=== PATIENT | male | born 1955 | race Caucasian/White ===

== ENCOUNTER 2017-11-02 10:22 | Emergency (ER) | payer MEDICAID ==
[~2017-11-02] VITALS: Ht 167.6 cm; Wt 81.7 kg
[2017-11-02 10:38] VITALS: Ht 167.6 cm; Wt 81.7 kg
[2017-11-02 12:34] LABS: microscopic required? NO
[2017-11-02 12:42] LABS: BASOPHIL % 0.9 % (0-2); PLATELET COUNT 273 x10^3mcL (130-400)
[2017-11-02 12:44] LABS: RED CELL DISTRIBUTION WIDTH 20.1 % (11.5-14.5)
[2017-11-02 12:45] LABS: rbc morphology (normal/abnorm) ABNORMAL (NORMAL)
[2017-11-02 12:47] LABS: CARBON DIOXIDE 18.2 mmol/L (21-32); CHLORIDE SERUM 101 mmol/L (98-107); CREATININE SERUM 0.8 mg/dL (0.7-1.3); GFR1 > 60 mL/min; GLUCOSE SERUM 169 mg/dL (74-106); POTASSIUM SERUM 3.4 mmol/L (3.5-5.1); SODIUM SERUM 132 mmol/L (136-145)
[2017-11-02 12:51] LABS: ALKALINE PHOSPHATASE 129 U/L (46-116); ALT/SGPT 95 U/L (16-63); AMYLASE 42 U/L (25-115); AST/SGOT 160 U/L (15-37); BILIRUBIN TOTAL 2.31 mg/dL (0.20-1.00); LIPASE 118 IU/L (73-393); MAGNESIUM 2.4 mg/dL (1.8-2.4)
[2017-11-02 12:53] LABS: ALBUMIN 2.7 g/dL (3.4-5.0); CHOLESTEROL 362 mg/dL (<200); HDL CHOLESTEROL 30 mg/dL (40-60)
[2017-11-02 13:06] LABS: UA SPECIFIC GRAVITY 1.025 (1.005-1.035); urine erythrocyte NEGATIVE (NEGATIVE)
[2017-11-02 13:30] LABS: AMPHETAMINE QUAL UR NONE DETECTED (NEG <=1000)
[2017-11-02 15:06] VITALS: BP 149/82
== END 2017-11-02 15:06 | disposition home or self-care (01) ==
LOC: ED 10:22
PROVIDERS: Emergency Medicine
DX: K65.4 Sclerosing mesenteritis (principal); F10.20 Alcohol dependence, uncomplicated; K72.90 Hepatic failure, unspecified without coma; R74.0 Nonspecific elevation of levels of transaminase and lactic acid dehydrogenase [LDH]; K70.9 Alcoholic liver disease, unspecified; I10 Essential (primary) hypertension; E78.00 Pure hypercholesterolemia, unspecified
CPT/HCPCS: 83880; G0480; J1885; Q0162

== ENCOUNTER 2019-12-03 15:14 | Emergency (ER) | payer BC ==
[2019-12-03 17:01] LABS: PLATELET COUNT 100 x10^3mcL (130-400); RED CELL DISTRIBUTION WIDTH 19.1 % (11.5-14.5)
[2019-12-03 17:16] LABS: ALKALINE PHOSPHATASE 158 U/L (46-116); BILIRUBIN TOTAL 2.7 mg/dL (0.20-1.00); CARBON DIOXIDE 19.7 mmol/L (21-32); CHLORIDE SERUM 90 mmol/L (98-107); CREATININE SERUM 0.9 mg/dL (0.7-1.3); GFR1 > 60 mL/min; GLUCOSE SERUM 341 mg/dL (74-106); LIPASE 232 IU/L (73-393); POTASSIUM SERUM 3.6 mmol/L (3.5-5.1); SODIUM SERUM 126 mmol/L (136-145)
[2019-12-03 17:36] LABS: BAND NEUTROPHIL 3 % (0-10); MONOCYTE 5 % (0-7); SEGMENTED NEUTROPHILS 43 % (37-75)
[2019-12-03 17:37] LABS: rbc morphology (normal/abnorm) ABNORMAL (NORMAL)
[2019-12-03 17:38] LABS: PLATELET MORPHOLOGY PLATELETS DECREASED
[2019-12-03 17:53] LABS: CALCIUM 8.2 mg/dL (8.5-10.1); TOTAL PROTEIN, SERUM 6.7 g/dL (6.4-8.2)
[2019-12-03 18:15] LABS: AST/SGOT 231 U/L (15-37)
[2019-12-03 18:25] LABS: ALT/SGPT 55 U/L (16-63)
[2019-12-03 19:07] VITALS: BP 138/83
== END 2019-12-03 19:07 | disposition home or self-care (01) ==
LOC: ED 15:14
PROVIDERS: Emergency Medicine
DX: F10.20 Alcohol dependence, uncomplicated (principal); E11.65 Type 2 diabetes mellitus with hyperglycemia; R10.32 Left lower quadrant pain; R10.12 Left upper quadrant pain; R11.2 Nausea with vomiting, unspecified; F41.9 Anxiety disorder, unspecified; I10 Essential (primary) hypertension; E78.00 Pure hypercholesterolemia, unspecified; Y90.9 Presence of alcohol in blood, level not specified
CPT/HCPCS: J2060; J7030

== ENCOUNTER 2020-01-05 13:03 | Emergency (ER) | payer BC, SELFPAY ==
[~2020-01-05] VITALS: Ht 167.6 cm; Wt 104.3 kg
[2020-01-05 14:04] VITALS: Ht 167.6 cm; Wt 104.3 kg
[2020-01-05 16:11] LABS: BASOPHIL % 0.5 % (0-2)
[2020-01-05 16:18] LABS: PLATELET COUNT 51 x10^3mcL (130-400); RED CELL DISTRIBUTION WIDTH 18.3 % (11.5-14.5)
[2020-01-05 16:29] LABS: rbc morphology (normal/abnorm) NORMAL (NORMAL)
[2020-01-05 16:35] LABS: CALCIUM 7.9 mg/dL (8.5-10.1); CARBON DIOXIDE 24.9 mmol/L (21-32); CHLORIDE SERUM 96 mmol/L (98-107); CREATININE SERUM 0.9 mg/dL (0.7-1.3); GFR1 > 60 mL/min; GLUCOSE SERUM 320 mg/dL (74-106); POTASSIUM SERUM 3.6 mmol/L (3.5-5.1); SODIUM SERUM 131 mmol/L (136-145)
[2020-01-05 16:39] LABS: ALBUMIN 2.2 g/dL (3.4-5.0); ALKALINE PHOSPHATASE 195 U/L (46-116); ALT/SGPT 64 U/L (16-63); AST/SGOT 165 U/L (15-37); BILIRUBIN TOTAL 3.04 mg/dL (0.20-1.00); C REACTIVE PROTEIN 3.5 mg/dL (<=0.9); LACTIC DEHYDROGENASE (LDH) 344 U/L (100-190); LIPASE 129 IU/L (73-393); TOTAL PROTEIN, SERUM 6.4 g/dL (6.4-8.2)
[2020-01-05 18:12] LABS: microscopic required? YES; urine erythrocyte NEGATIVE (NEGATIVE)
[2020-01-05 20:35] VITALS: BP 153/81
== END 2020-01-05 20:35 | disposition home or self-care (01) ==
LOC: ED 13:03
PROVIDERS: Emergency Medicine
DX: U07.1 COVID-19 (principal); E11.65 Type 2 diabetes mellitus with hyperglycemia; R11.10 Vomiting, unspecified; R19.7 Diarrhea, unspecified; R74.0 Nonspecific elevation of levels of transaminase and lactic acid dehydrogenase [LDH]; D69.6 Thrombocytopenia, unspecified; E66.9 Obesity, unspecified; E78.00 Pure hypercholesterolemia, unspecified; Z68.37 Body mass index [BMI] 37.0-37.9, adult
CPT/HCPCS: 36600; 82962; 83880; 87804; J7030; Q0092; U0003-CS